=== PATIENT | female | born 1990 | race Caucasian/White ===

== ENCOUNTER 2018-01-17 10:10 | Inpatient (IN) | payer SELFPAY ==
[2018-01-17 10:27] VITALS: BMI 25.9
[2018-01-17 11:17] LABS: Hematocrit 41.8 % (37-47); Hemoglobin 14.9 g/dl (12.0-15.0); Mean Corp Hgb Conc 35.6 g/gl (32-36); Mean Corpuscular Hgb 31.2 pg (27.0-32.0); Mean Corpuscular Volume 87.6 fL (81-99); Mean Platelet Vol. 9.8 fl (6.2-12.0); Platelet Count 314 K/mm3 (150-450); RBC Distribution Width CV 12.9 % (11.6-14.6); Red Blood Count 4.77 M/mm3 (4.2-5.4); White Blood Count 9.6 K/mm3 (4.4-11.0)
[2018-01-17 11:23] LABS: Scan Indicated on CBC? Y/N NO
[2018-01-17 11:41] LABS: AST(SGOT) 29 U/L (15-37); Alanine Aminotransfer ALT/SGPT 29 U/L (13-56); Creatinine, Serum 0.62 mg/dL (0.55-1.02); EST Glomerular Filtration Rate 124 mL/min (>60); Est Glom Filt Rate - Afr Amer 150 mL/min (>60); Estimated Creatinine Clearance 132.54 ml/min; Uric Acid 4.2 mg/dL (2.6-6.0)
[2018-01-17 11:59] LABS: Prothrombin Time (Protime)PT. 13.1 SECONDS (11.7-14.9)
[2018-01-17 12:00] LABS: Partial Thromboplast Time 27.6 Seconds (24.1-36.2)
[2018-01-17 12:10] LABS: Protein, Urine (Random) 9.6 mg/dL (<11.9); Protein:Creat Ratio 169 mg/g CRE (0-200)
[2018-01-17] MEDS: 0.9% Saline Lock 10 ML Syringe IV (12:33)
[2018-01-17] MEDS: miSOPROStol 25 MCG TABLET VAGINAL ×3 (12:39→20:37)
--- NOTE | 2018-01-17 13:12 | PCM.HP.OB ---
- Problem List (1) Gestational HTN Status: Acute Qualifiers: Trimester: third trimester Qualified Code(s): O13.3 - Gestational [-induced] hypertension without significant proteinuria, third trimester History Date of Admission: 01/17/18 Final DEANNA: 02/07/18 Final DEANNA Source: US <20 weeks Gestational age: 37 Weeks and 0 Days History of this : No complications with this - course has been unremarkable until today. Patient presented to office without complaints but was found to have elevated blood pressures. Initial BP = 152/102. Following five blood pressures were 140-150s/90s. Patient denies SHETH, RUQ pain or scotoma. Pertinent Past Medical History: Noncontributory PMH Allergies cefaclor [From [facility]] Allergy (Verified 01/17/18 10:29) Other Current Medications Acetaminophen (Tylenol) 325 - 650 mg PO Q4H PRN PRN PRN Reason: PAIN OR FEVER >100.4F Al Hydroxide/Mg Hydroxide (Mylanta Ii) 15 - 30 ml PO Q4H PRN PRN PRN Reason: INDIGESTION Citric Acid/Sodium Citrate (Bicitra) 30 ml PO UD PRN Oxytocin/Sodium Chloride () 30 units in 500 mls @ 1 mls/hr IV .Q500H RAAD Lactated Ringer's () 1,000 mls @ 50 mls/hr IV .Q20H [facility] Misoprostol (Cytotec) 25 mcg VAGINAL Q4H [facility] Stop: 01/18/18 07:31 Last Admin: 01/17/18 12:39 Dose: 25 mcg Nalbuphine HCl (Nubain) 5 - 10 mg IV Q3H PRN PRN PRN Reason: PAIN (4-10/10) Ondansetron HCl (Zofran) 4 mg IV Q8H PRN PRN PRN Reason: NAUSEA Promethazine HCl (Phenergan Iv) 6.25 - 12.5 mg IV Q4H PRN PRN; Protocol PRN Reason: IF NAUSEA PERSISTS Sodium Chloride () 5 - 15 ml IV UD [facility] Last Admin: 01/17/18 12:33 Dose: 10 ml Smoking Status: Never smoker Alcohol: None Drug Use: none Number of Fetus(es): 1 Review of Systems Constitutional: Denies: Chills, Fever, Weight Change HEENT: Denies: Head Aches, Sinus Congestion, Sinus Drainage Cardiovascular: Denies: Chest Pain, Palpitations Respiratory: Denies: Cough, Shortness of breath at rest, Sputum production Gastrointestinal: Denies: Abdominal Pain, Nausea, Vomiting Genitourinary: Denies: Dysuria Gynecological: Denies: Vaginal discharge Musculoskeletal: Denies: Joint Pain, Joint Tenderness Skin: Denies: Rash, Wounds Neurological: Denies: Numbness, Tingling, Focal weakness Psychiatric: Denies: Anxiety, Depression, Homicidal Ideations, Suicidal Ideations Hematologic/ Lymphatic: Denies: Easy Bruising, Easy Bleeding Physical Exam General: Alert, Oriented x3, No apparent distress Cardiovascular: Regular rate, Regular Rhythm Lungs: Clear to auscultation, Normal air movement Abdomen: Non Tender, No Hepato-splenomegaly, Gravid, Appropriate for Gestational Age Extremities:: No edema Estimated gestational size: Appropriate for gestational size Presentation: Cephalic Cervix Dilation (cm): 1 Station: -2 Effacement (%): 50 Assessment/Plan Active and Suspected Problems Gestational HTN (Acute) A: 27 y/o @ 37 weeks, IOL for Gestational HTN, Category I FHT P: 1) Admit patient, IV heplock start and Pre-eclampsia blood work to be drawn 2) Continuous EFM 3) Full diet at this time - will consider changing to clear liquids if patient elects epidural 4) Cytotec IOL at this time, R/B/A of this medication reviewed. 5) Consents signed and all patient questions answered. 6) Reassess cervix PRN Namita MAY
--- NOTE | 2018-01-17 13:20 | HP.PCM_ITS ---
- Problem List (1) Gestational HTN Status: Acute Qualifiers: Trimester: third trimester Qualified Code(s): O13.3 - Gestational [ -induced] hypertension without significant proteinuria, third trimester History Date of Admission: 01/17/18 Final DEANNA: 02/07/18 Final DEANNA Source: US <20 weeks Gestational age: 37 Weeks and 0 Days History of this : No complications with this - course has been unremarkable until today. Patient presented to office without complaints but was found to have elevated blood pressures. Initial BP = 152/102. Following five blood pressures were 140-150s/90s. Patient denies SHETH, RUQ pain or scotoma. Pertinent Past Medical History: Noncontributory PMH Allergies cefaclor [From [facility]] Allergy (Verified 01/17/18 10:29) Other Current Medications Acetaminophen (Tylenol) 325 - 650 mg PO Q4H PRN PRN PRN Reason: PAIN OR FEVER >100.4F Al Hydroxide/Mg Hydroxide (Mylanta Ii) 15 - 30 ml PO Q4H PRN PRN PRN Reason: INDIGESTION Citric Acid/Sodium Citrate (Bicitra) 30 ml PO UD PRN Oxytocin/Sodium Chloride () 30 units in 500 mls @ 1 mls/hr IV .Q500H RAAD Lactated Ringer's () 1,000 mls @ 50 mls/hr IV .Q20H [facility] Misoprostol (Cytotec) 25 mcg VAGINAL Q4H [facility] Stop: 01/18/18 07:31 Last Admin: 01/17/18 12:39 Dose: 25 mcg Nalbuphine HCl (Nubain) 5 - 10 mg IV Q3H PRN PRN PRN Reason: PAIN (4-10/10) Ondansetron HCl (Zofran) 4 mg IV Q8H PRN PRN PRN Reason: NAUSEA Promethazine HCl (Phenergan Iv) 6.25 - 12.5 mg IV Q4H PRN PRN; Protocol PRN Reason: IF NAUSEA PERSISTS Sodium Chloride () 5 - 15 ml IV UD [facility] Last Admin: 01/17/18 12:33 Dose: 10 ml Smoking Status: Never smoker Alcohol: None Drug Use: none Number of Fetus(es): 1 Review of Systems Constitutional: Denies: Chills, Fever, Weight Change HEENT: Denies: Head Aches, Sinus Congestion, Sinus Drainage Cardiovascular: Denies: Chest Pain, Palpitations Respiratory: Denies: Cough, Shortness of breath at rest, Sputum production Gastrointestinal: Denies: Abdominal Pain, Nausea, Vomiting Genitourinary: Denies: Dysuria Gynecological: Denies: Vaginal discharge Musculoskeletal: Denies: Joint Pain, Joint Tenderness Skin: Denies: Rash, Wounds Neurological: Denies: Numbness, Tingling, Focal weakness Psychiatric: Denies: Anxiety, Depression, Homicidal Ideations, Suicidal Ideations Hematologic/ Lymphatic: Denies: Easy Bruising, Easy Bleeding Physical Exam General: Alert, Oriented x3, No apparent distress Cardiovascular: Regular rate, Regular Rhythm Lungs: Clear to auscultation, Normal air movement Abdomen: Non Tender, No Hepato-splenomegaly, Gravid, Appropriate for Gestational Age Extremities:: No edema Estimated gestational size: Appropriate for gestational size Presentation: Cephalic Cervix Dilation (cm): 1 Station: -2 Effacement (%): 50 Assessment/Plan Active and Suspected Problems Gestational HTN (Acute) A: 27 y/o @ 37 weeks, IOL for Gestational HTN, Category I FHT P: 1) Admit patient, IV heplock start and Pre-eclampsia blood work to be drawn 2) Continuous EFM 3) Full diet at this time - will consider changing to clear liquids if patient elects epidural 4) Cytotec IOL at this time, R/B/A of this medication reviewed. 5) Consents signed and all patient questions answered. 6) Reassess cervix PRN Namita MAY
--- NOTE | 2018-01-17 17:54 | PN.OBGYN_ITS ---
Patient Problems: Active and Suspected Problems Gestational HTN (Acute) Subjective: Patient reports no issues at this time; denies SHETH, denies dizziness, denies scotoma. Patient has and other family in room at this time providing support. Patient notes no VB or vaginal discharge. Objective: FHT baseline 150, moderate variability, +accels, no decels Ctx irregular on tocometer, non palpable and none felt by patient SVE deferred, cytotec dose #2 provided to patient by set staff fitter. Per nursing staff , cervix unchanged with last exam. - Physical Exam General: Alert, Oriented x3, Cooperative HEENT: Atraumatic, Normocephalic Neck: Supple Lungs: Clear to auscultation, Normal air movement Cardiovascular: Regular rate, No murmurs Abdomen: Bowel Sounds Present, Soft, Non Tender Extremities: No edema, Capillary Refill Less than 3 Seconds Skin: No rashes, No breakdown Musculoskeletal: No Tenderness to Palpation of Joints or Extremities Neurological: Cranial nerves II-XII grossly intact Psych/Mental Status: Normal Affect, Appropriate Weight: 166 lb 0.129 oz Body Mass Index (BMI) 25.9 Laboratory Tests Past 24 Hrs 01/17/18 01/17/18 01/17/18 11:00 11:00 11:00 WBC 9.6 RBC 4.77 Hgb 14.9 Hct 41.8 MCV 87.6 MCH 31.2 MCHC 35.6 RDW 12.9 RDW Differential 40.0 Plt Count 314 MPV 9.8 PT Cancelled INR Cancelled APTT Cancelled Creatinine Estim Creat Clear Calc Est GFR (MDRD) Af Amer Est GFR (MDRD) Non-Af Uric Acid AST ALT U Random Total Protein Urine Creatinine Protein/Creatinin Ratio Blood Type B POSITIVE Antibody Screen NEGATIVE 01/17/18 01/17/18 01/17/18 11:00 11:35 11:55 WBC RBC Hgb Hct MCV MCH MCHC RDW RDW Differential Plt Count MPV PT 13.1 INR 1.0 APTT 27.6 Creatinine 0.62 Estim Creat Clear Calc 132.54 Est GFR (MDRD) Af Amer 150 Est GFR (MDRD) Non-Af 124 Uric Acid 4.2 AST 29 ALT 29 U Random Total Protein 9.6 Urine Creatinine 56.80 Protein/Creatinin Ratio 169 Blood Type Antibody Screen Medical Necessity - Tobacco Use Smoking Status: Never smoker Tobacco Use: Non-smoker Assessment/Plan Active and Suspected Problems Gestational HTN (Acute) A: 27 y/o @ 37 weeks gestation, IOL for gestational hypertension, Category I FHT P: 1) Continue present management, cytotec 25mcg q 4 hours PV. Consider watters catheter placement over night if minimal cervical change noted 2) Encourage PO fluids and position changes 3) Continue to monitor BP closely, if elevate BP noted will consult with Dr. Puri in anticipation of starting IV antihypertensives and possibly magnesium sulfate Namita Johnson CNM
--- NOTE | 2018-01-17 21:10 | PN.OBGYN_ITS ---
Patient Problems: Active and Suspected Problems Gestational HTN (Acute) Subjective: Patient laying in bed, denies any complaints or concerns at this time. Patient' s family remains at bedside providing support. Objective: VSS, Afebrile - see nurse's notes for Vital Signs FHT baseline 150, moderate variability, +accels, no decels Ctx irregular, not palpable, few noted on tocometer 2/60/-2 posterior moderate firmness - Physical Exam General: Alert, Oriented x3, Cooperative HEENT: Atraumatic, PERRLA, EOMI, Normocephalic Neck: Supple Lungs: Normal air movement Cardiovascular: Regular rate, No murmurs Abdomen: Soft, Non Tender Extremities: No edema, Capillary Refill Less than 3 Seconds, Peripheral Pulses Normal Skin: No rashes, No breakdown Musculoskeletal: No Tenderness to Palpation of Joints or Extremities Neurological: Cranial nerves II-XII grossly intact, Deep Tendon Reflexes 2+/4 and Symmetrical Psych/Mental Status: Normal Affect, Appropriate Weight: 166 lb 0.129 oz Body Mass Index (BMI) 25.9 Laboratory Tests Past 24 Hrs 01/17/18 01/17/18 01/17/18 11:00 11:00 11:00 WBC 9.6 RBC 4.77 Hgb 14.9 Hct 41.8 MCV 87.6 MCH 31.2 MCHC 35.6 RDW 12.9 RDW Differential 40.0 Plt Count 314 MPV 9.8 PT Cancelled INR Cancelled APTT Cancelled Creatinine Estim Creat Clear Calc Est GFR (MDRD) Af Amer Est GFR (MDRD) Non-Af Uric Acid AST ALT U Random Total Protein Urine Creatinine Protein/Creatinin Ratio Blood Type B POSITIVE Antibody Screen NEGATIVE 01/17/18 01/17/18 01/17/18 11:00 11:35 11:55 WBC RBC Hgb Hct MCV MCH MCHC RDW RDW Differential Plt Count MPV PT 13.1 INR 1.0 APTT 27.6 Creatinine 0.62 Estim Creat Clear Calc 132.54 Est GFR (MDRD) Af Amer 150 Est GFR (MDRD) Non-Af 124 Uric Acid 4.2 AST 29 ALT 29 U Random Total Protein 9.6 Urine Creatinine 56.80 Protein/Creatinin Ratio 169 Blood Type Antibody Screen Medical Necessity - Tobacco Use Smoking Status: Never smoker Tobacco Use: Non-smoker Assessment/Plan Active and Suspected Problems Gestational HTN (Acute) 27 y/o @ 37 weeks, IOL for Gestational HTN, Category I FHT P: 1) Continue present management - cytotec dose # 3 just placed 2) Anticipate initiation of pitocin IV per protocol when cervix >3 cm dilated 3) Dr. Puri updated about patient status Namita Johnson CNM
[2018-01-18] MEDS: miSOPROStol 25 MCG TABLET VAGINAL ×2 (00:25→04:21)
[2018-01-18] MEDS: Acetaminophen 325 MG Tablet PO ×2 (00:31→04:21)
[2018-01-18] MEDS: 0.9% Saline Lock 10 ML Syringe IV ×2 (04:28→08:12)
--- NOTE | 2018-01-18 04:54 | PCM.PN.BLA ---
Progress Note S: Patient has been up ambulating halls over last hour prior to insertion of next dose of cytotec. Patient reports increasing pain and discomfort, denies any VB or LOF. Patient has easily been able to sleep and is rating her pain 8/10. Reassuring FHT noted by nursing staff. O: VSS, Afebrile. Blood pressures have ranged 120-130/70-80s FHT baseline 135, moderate variability, + accels, no decels Ctx irregular, mildly palpable SVE by SHARON Deleon - 2/75/-2 soft, anterior A: 27 y/o @ 37.1 weeks, IOL for GHTN, Cytotec Induction, Category I FHT P: 1) 5th dose of Cytotec placed by nursing staff at 0430, based on cervical exam will recommend switching to IV Pitocin per protocol at 0830 2) Encourage position changes and PO hydration 3) Pain medication options to be offered per patient request, anticipate patient will elect for epidural PRN Namita Johnson CNM
--- NOTE | 2018-01-18 05:02 | PN_ITS ---
Progress Note S: Patient has been up ambulating halls over last hour prior to insertion of next dose of cytotec. Patient reports increasing pain and discomfort, denies any VB or LOF. Patient has easily been able to sleep and is rating her pain 8/ 10. Reassuring FHT noted by nursing staff. O: VSS, Afebrile. Blood pressures have ranged 120-130/70-80s FHT baseline 135, moderate variability, + accels, no decels Ctx irregular, mildly palpable SVE by SHARON Deleon - 2/75/-2 soft, anterior A: 27 y/o @ 37.1 weeks, IOL for GHTN, Cytotec Induction, Category I FHT P: 1) 5th dose of Cytotec placed by nursing staff at 0430, based on cervical exam will recommend switching to IV Pitocin per protocol at 0830 2) Encourage position changes and PO hydration 3) Pain medication options to be offered per patient request, anticipate patient will elect for epidural PRN Namita Johnson CNM
[2018-01-18] MEDS: Lactated Ringers 1,000 ML 50 ML IV ×5 (08:14→22:25)
[2018-01-18] MEDS: Oxytocin 30 units/NS 500 ml 30 UNITS/500 ML IV.SOLN IV (09:24)
--- NOTE | 2018-01-18 13:38 | PCM.PN.BLA ---
Progress Note S: Patient comfortable with ctxs O: cvx 3/-2 AROM clear fluid fhts 140 with mod variability, accels tocos Q2 min A&P: continue induction for gestational hypertension
[2018-01-18] MEDS: fentaNYL-bupivacaine (epidural) 100 ML BAG EPIDURAL ×2 (14:45→21:57)
[2018-01-18] MEDS: Ondansetron 4 MG/2 ML Vial IV (18:34)
[2018-01-18] MEDS: Oxytocin 30 units/NS 500 ml 30 UNITS/500 ML IV.SOLN 334 UNITS IV (23:21)
[2018-01-18] MEDS: Oxytocin 30 units/NS 500 ml 30 UNITS/500 ML IV.SOLN 167 UNITS IV (23:51)
[2018-01-19] VITALS (7 sets, daily range): BP systolic 133–152; BP diastolic 72–89; PULSE 69–93; RESP 16–20; TEMP 36.6–37.3; O2SAT 98–100
--- NOTE | 2018-01-19 00:06 | PCM.OB.VAG ---
Vaginal Delivery Maternal Presentation: Medically Indicated Induction Method of Induction: Pitocin, Amniotomy, Cytotec Medical Reason for Induction: Gestational Hypertension Amniotic Membrane Rupture Type: Artificial Amniotic Fluid Description: Clear Final DEANNA: 02/07/18 Gestational age: 37 Weeks and 1 Days Date of Procedure: 01/19/18 Pre-Operative Diagnosis: Gestational hypertension Post-Operative Diagnosis: Same Surgery/ Procedure Performed: Spontaneous Vaginal Delivery Type of Anesthesia: Epidural Description of Procedure: [facility] & [facility]ed. She pushed well & delivered the head. The shoulders delivered with gentle traction on the head. No excess traction placed on the head. Body delivered & placed on maternal abdomen. 3vc clamped & cut in delayed fashion. Placenta delivered with gentle traction. Good uterine tone obtained. Presentation: Vertex, QUINTIN Placental Delivery Description: Spontaneous Placenta Disposition: [facility] Cord Vessel Description: 3 Vessels Cord Entanglement: None Estimated Blood Loss: 350ml Infant A gender: Female (1 minute): 8 (5 minute): 9 Episiotomy Description: None Laceration: 2nd degree - bilateral vaginal & 1st degree left labia minora - repaired with 3-0 vicryl Medications given after delivery: IV Pitocin Complications: None
--- NOTE | 2018-01-19 00:16 | OP.PCM_ITS ---
Vaginal Delivery Maternal Presentation: Medically Indicated Induction Method of Induction: Pitocin, Amniotomy, Cytotec Medical Reason for Induction: Gestational Hypertension Amniotic Membrane Rupture Type: Artificial Amniotic Fluid Description: Clear Final DEANNA: 02/07/18 Gestational age: 37 Weeks and 1 Days Date of Procedure: 01/19/18 Pre-Operative Diagnosis: Gestational hypertension Post-Operative Diagnosis: Same Surgery/ Procedure Performed: Spontaneous Vaginal Delivery Type of Anesthesia: Epidural Description of Procedure: [facility] & [facility]ed. She pushed well & delivered the head. The shoulders delivered with gentle traction on the head. No excess traction placed on the head. Body delivered & placed on maternal abdomen. 3vc clamped & cut in delayed fashion. Placenta delivered with gentle traction. Good uterine tone obtained. Presentation: Vertex, QUINTIN Placental Delivery Description: Spontaneous Placenta Disposition: [facility] Cord Vessel Description: 3 Vessels Cord Entanglement: None Estimated Blood Loss: 350ml Infant A gender: Female (1 minute): 8 (5 minute): 9 Episiotomy Description: None Laceration: 2nd degree - bilateral vaginal & 1st degree left labia minora - repaired with 3-0 vicryl Medications given after delivery: IV Pitocin Complications: None
--- NOTE | 2018-01-19 00:45 | PCM.PN.BLA ---
Progress Note S: Called by nurse to see patient for drooping right eyelid Patient denies headache or blurry vision O: BP = 144/78 neuro - moving arms equally & finger grasp strong pupils - right slightly smaller than left but both equally reactive to light slight right eyelid droop to puffy no facial droop. moving tongue & head well A&P: Patient also evaluated by anesthesia (MELCHOR Robbins) - per her no evidence complication from epidural No neurological deficits Will continue to observe, no evidence acute pathology
[2018-01-19] MEDS: Ibuprofen 600 MG Tablet PO ×3 (03:11→22:33)
[2018-01-19] MEDS: oxyCODONE 5 MG Tablet PO ×3 (04:45→21:02)
[2018-01-19] MEDS: Dibucaine 30 GM Tube 1 APPLIC TOPICAL (06:58)
--- NOTE | 2018-01-19 07:47 | PCM.PN.OB ---
Patient Problems: Active and Suspected Problems Gestational HTN (Acute) Subjective: Feels well. Denies complaints. Eyelid no longer drooping. - Physical Exam General: Alert, Oriented x3 Abdomen: Soft, Non Tender, Non-Distended - ff mid & below umb Extremities: No Calf Tenderness Neurological: Cranial nerves II-XII grossly intact - PERRL Vital Signs Temp Pulse Resp BP Pulse Ox 98.7 F 93 18 134/72 H 100 01/19/18 06:00 01/19/18 06:00 01/19/18 06:00 01/19/18 06:00 01/19/18 06:00 Weight: 166 lb 0.129 oz Body Mass Index (BMI) 25.9 Intake and Output for Last 24 Hours 01/17/18 01/18/18 01/19/18 23:59 23:59 23:59 Intake Total 193 / 1931 2543 / 2543 Output Total 1800 / 1800 Balance 1931 / 1931 743 / 743 Medical Necessity - Tobacco Use Smoking Status: Never smoker Tobacco Use: Non-smoker Assessment/Plan Active and Suspected Problems Gestational HTN (Acute) 27yo female PPD#1 Gestational hypertension - BP normal this am, continue to monitor Neuro - pupils equal & reactive, no deficits Routine care
--- NOTE | 2018-01-19 07:51 | PCM.DCVAG ---
Discharge Diet: No Restrictions Discharge Activity: [address], May Shower Additional Activity Instructions:: Follow up in 1 week for a blood pressure check. Additional Instructions: If you experience any of the following, contact your healthcare provider. Bleeding that soaks a pad every hour for 2 hours Fever 100.4 or higher Unrelieved incision or abdominal pain Swelling, redness, discharge or bleeding from your incision or episiotomy site Your incision begins to separate Problems urinating (including inability to urinate or burning while urinating). Visual changes Severe headache Flu-like symptoms Pain or redness in one of both of your breasts Pain, warmth, tenderness or swelling in your legs, especially the calf area Frequent nausea and vomiting Symptoms of depression or anxiety If you experience any of the following, call 911 or go to the nearest Emergency Room. Chest pain Problems breathing Seizure activity Partial or complete paralysis of a body part, slurred speech, weakness or drooping of the face, or a sudden inability to walk or hold your balance Allergies/Adverse Reactions: Allergies cefaclor [From Ceclor] Allergy (Verified 01/17/18 19:39) Other hives Medications to take at Discharge Vits [Prenatabs FA ] 1 tab PO DAILY 01/17/18 Primary Care Physician: Care Physician,No Primary [Primary Care Provider] -
--- NOTE | 2018-01-19 07:52 | DCINST_ITS ---
Discharge Diet: No Restrictions Discharge Activity: May Drive, May Shower Additional Activity Instructions:: Follow up in 1 week for a blood pressure check. Additional Instructions: If you experience any of the following, contact your healthcare provider. * Bleeding that soaks a pad every hour for 2 hours * Fever 100.4 or higher * Unrelieved incision or abdominal pain * Swelling, redness, discharge or bleeding from your incision or episiotomy site * Your incision begins to separate * Problems urinating (including inability to urinate or burning while urinating) . * Visual changes * Severe headache * Flu-like symptoms * Pain or redness in one of both of your breasts * Pain, warmth, tenderness or swelling in your legs, especially the calf area * Frequent nausea and vomiting * Symptoms of depression or anxiety If you experience any of the following, call 911 or go to the nearest Emergency Room. * Chest pain * Problems breathing * Seizure activity * Partial or complete paralysis of a body part, slurred speech, weakness or drooping of the face, or a sudden inability to walk or hold your balance Allergies/Adverse Reactions: Allergies cefaclor [From Ceclor] Allergy (Verified 01/17/18 19:39) Other hives Medications to take at Discharge Vits [Prenatabs FA ] 1 tab PO DAILY 01/17/18 Primary Care Physician: Care Physician,No Primary [Primary Care Provider] -
[2018-01-19] MEDS: Senna/Docusate Sodium 1 Tablet PO (12:01)
[2018-01-20 02:35] VITALS: BP 140/80; PULSE 72; RESP 18; TEMP 36.5; O2SAT 96
--- NOTE | 2018-01-20 07:53 | PCM.PN.OB ---
Patient Problems: Active and Suspected Problems Gestational HTN (Acute) Subjective: pt seen at bedside, doing well. pt reports good pain control. lochia mild. Breast feeding well. pt denies SHETH, blurry vision or epigastric pain. - Physical Exam General: Alert, Oriented x3 Abdomen: Soft, Non Tender, Non-Distended, - - fundus firm Extremities: No Calf Tenderness Vital Signs Temp Pulse Resp BP Pulse Ox 97.7 F L 72 18 140/80 H 96 01/20/18 02:35 01/20/18 02:35 01/20/18 02:35 01/20/18 02:35 01/20/18 02:35 Oxygen Delivery Method Room Air Weight: 75.3 kg Body Mass Index (BMI) 25.9 Intake and Output for Last 24 Hours 01/18/18 01/19/18 01/20/18 23:59 23:59 23:59 Intake Total 1931 / 1931 2543 / 2543 Output Total 1800 / 1800 Balance 1931 / 1931 743 / 743 Medical Necessity - Tobacco Use Smoking Status: Never smoker Tobacco Use: Non-smoker Assessment/Plan Active and Suspected Problems Gestational HTN (Acute) PPD#2, doing well. BP stable. 1) reviewed s/sx of PP Pre E with patient and spouse. they understand if symptoms arise to return to office or ER immediately 2) RTO monday01/23/18 at 9am for BP check 3) Dc home
[2018-01-20 08:00] VITALS: BP 134/82; RESP 16; O2SAT 98
[2018-01-20] MEDS: Ibuprofen 600 MG Tablet PO (08:13)
== END 2018-01-20 11:40 | disposition home or self-care (01) | DRG 775 ==
PROVIDERS: Advanced Practice Midwife; Admitting Provider Obstetrics & Gynecology; Visit Provider Obstetrics & Gynecology
DX: O13.3 Gestational [pregnancy-induced] hypertension without significant proteinuria, third trimester (principal); H02.401 Unspecified ptosis of right eyelid; O70.1 Second degree perineal laceration during delivery; O99.89 Other specified diseases and conditions complicating pregnancy, childbirth and the puerperium; Z37.0 Single live birth; Z3A.37 37 weeks gestation of pregnancy
CPT/HCPCS: 59025; 59050; 82565; 82570; 84156; 84450; 84460; 84550; 85027; 85610; 85730; 86850; 86900; 99218; J7120; A4216; G0378; J2405

== ENCOUNTER 2018-01-23 09:20 | Outpatient (CLI) | payer SELFPAY ==
[2018-01-23] VITALS (15 sets, daily range): BP systolic 128–147; BP diastolic 64–89; PULSE 90–97; RESP 14; TEMP 37; O2SAT 100
[2018-01-23 10:27] LABS: Prothrombin Time (Protime)PT. 12.9 SECONDS (11.7-14.9)
[2018-01-23 10:28] LABS: Hematocrit 41.4 % (37-47); Hemoglobin 14.7 g/dl (12.0-15.0); Mean Corp Hgb Conc 35.5 g/gl (32-36); Mean Corpuscular Hgb 31.3 pg (27.0-32.0); Mean Corpuscular Volume 88.3 fL (81-99); Mean Platelet Vol. 9.2 fl (6.2-12.0); Partial Thromboplast Time 29.3 Seconds (24.1-36.2); Platelet Count 387 K/mm3 (150-450); RBC Distribution Width CV 12.6 % (11.6-14.6); RBC Distribution Width SD 39.8 fl (35.1-43.9); Red Blood Count 4.69 M/mm3 (4.2-5.4); Scan Indicated on CBC? Y/N NO; White Blood Count 8.7 K/mm3 (4.4-11.0)
[2018-01-23 10:31] LABS: Protein, Urine (Random) 13.5 mg/dL (<11.9); Protein:Creat Ratio 234 mg/g CRE (0-200)
[2018-01-23 10:48] LABS: AST(SGOT) 47 U/L (15-37); Alanine Aminotransfer ALT/SGPT 54 U/L (13-56); Creatinine, Serum 0.68 mg/dL (0.55-1.02); EST Glomerular Filtration Rate 111 mL/min (>60); Est Glom Filt Rate - Afr Amer 134 mL/min (>60); Uric Acid 5.1 mg/dL (2.6-6.0)
--- NOTE | 2018-01-23 13:42 | OB.TRI.NOTE ---
History of Present Illness Date of Service: 01/23/18 Was patient seen by the physician?: Yes Reason For Visit: YOLYBRIAN Date of Service: 01/23/18 History of Present Illness: Patient 5 days s/p . She had her BP checked on L&D while baby was re-admitted for bilirubin. Patient reports very mild headache. Denies blurry vision or upper abdominal pain. Home Medications Medication Instructions Recorded Vits [Prenatabs FA ] 1 tab PO DAILY 01/17/18 Allergies cefaclor [From Ceclor] Allergy (Verified 01/17/18 19:39) Other hives Physical Exam Vitals: Vital Signs Temp Pulse Resp BP Pulse Ox 98.6 F 94 14 139/85 H 100 01/23/18 10:15 01/23/18 10:15 01/23/18 10:15 01/23/18 10:15 01/23/18 10:15 General: Alert, Oriented x3 Abdomen: Soft, Non Tender, Non-Distended, No Hepato-splenomegaly Extremities:: No edema Impression/Plan 27yo female with h/o gestational hypertension BP's reviewed & 128-147/64-89 Labs normal except mildly elevated AST Reflexes 2+ Patient to eat lunch & get 1 g tyleneol. IF feeling better will plan for d/c home. Patient has BP cuff to monitor BP at home. She will call with any BP 160/110. ALso reviewed preeclampsia symptoms. She will update office tomorrow. Plan for office visit with repeat LFT's in 2-3 days. Patient & her family agree with plan.
--- NOTE | 2018-01-23 13:50 | OB.TRI.HP_ITS ---
History of Present Illness Date of Service: 01/23/18 Was patient seen by the physician?: Yes Reason For Visit: YOLYBRIAN Date of Service: 01/23/18 History of Present Illness: Patient 5 days s/p . She had her BP checked on L&D while baby was re- admitted for bilirubin. Patient reports very mild headache. Denies blurry vision or upper abdominal pain. Home Medications Medication Instructions Recorded Vits [Prenatabs FA ] 1 tab PO DAILY 01/17/18 Allergies cefaclor [From Ceclor] Allergy (Verified 01/17/18 19:39) Other hives Physical Exam Vitals: Vital Signs Temp Pulse Resp BP Pulse Ox 98.6 F 94 14 139/85 H 100 01/23/18 10:15 01/23/18 10:15 01/23/18 10:15 01/23/18 10:15 01/23/18 10:15 General: Alert, Oriented x3 Abdomen: Soft, Non Tender, Non-Distended, No Hepato-splenomegaly Extremities:: No edema Impression/Plan 27yo female with h/o gestational hypertension BP's reviewed & 128-147/64-89 Labs normal except mildly elevated AST Reflexes 2+ Patient to eat lunch & get 1 g tyleneol. IF feeling better will plan for d/c home. Patient has BP cuff to monitor BP at home. She will call with any BP 160 /110. ALso reviewed preeclampsia symptoms. She will update office tomorrow. Plan for office visit with repeat LFT's in 2-3 days. Patient & her family agree with plan.
== END 2018-01-23 15:15 | disposition home or self-care (01) ==
LOC: WPOUT 09:24 → WP 09:25
PROVIDERS: Visit Provider Obstetrics & Gynecology
DX: O13.5 Gestational [pregnancy-induced] hypertension without significant proteinuria, complicating the puerperium (principal)
CPT/HCPCS: 36415; 82565; 82570; 84156; 84450; 84460; 84550; 85027; 85610; 85730; 99218; G0378

== ENCOUNTER → 2018-01-25 11:54 | Outpatient (CLI) | payer SELFPAY ==
[2018-01-25 12:10] LABS: Hematocrit 43.2 % (37-47); Hemoglobin 14.9 g/dl (12.0-15.0); Mean Corp Hgb Conc 34.5 g/gl (32-36); Mean Corpuscular Hgb 30.5 pg (27.0-32.0); Mean Corpuscular Volume 88.5 fL (81-99); Mean Platelet Vol. 8.9 fl (6.2-12.0); Platelet Count 360 K/mm3 (150-450); RBC Distribution Width CV 12.6 % (11.6-14.6); RBC Distribution Width SD 40.6 fl (35.1-43.9); Red Blood Count 4.88 M/mm3 (4.2-5.4); White Blood Count 9.4 K/mm3 (4.4-11.0)
[2018-01-25 12:16] LABS: Scan Indicated on CBC? Y/N NO
[2018-01-25 12:33] LABS: AST(SGOT) 30 U/L (15-37); Alanine Aminotransfer ALT/SGPT 46 U/L (13-56); Uric Acid 5.5 mg/dL (2.6-6.0)
== END ==
PROVIDERS: Visit Provider Advanced Practice Midwife
DX: O13.5 Gestational [pregnancy-induced] hypertension without significant proteinuria, complicating the puerperium (principal)
CPT/HCPCS: 36415; 84450; 84460; 84550; 85027

== ENCOUNTER 2020-05-29 07:04 | Inpatient (IN) | payer BC, SELFPAY ==
[2020-05-29] VITALS (55 sets, daily range): BP systolic 63–162; BP diastolic 37–101; PULSE 53–131; RESP 14–18; TEMP 36.4–37.4; O2SAT 98–100; BMI 27.3
[2020-05-29] MEDS: Lactated Ringers 1,000 ML 50 ML IV (07:30)
[2020-05-29 07:54] LABS: Absolute Lymphocyte Count 2.81 X10^3/uL (0.83-4.51); Absolute Neutrophil Count 10.4 X10^3/uL (2.0-7.7); Basophil# 0.03 X10^3/uL; Basophil% 0.2 % (0-1); Eosinophil# 0.09 X10^3/uL; Eosinophils% 0.6 % (0-5); Hematocrit 39.7 % (37-47); Hemoglobin 14.1 g/dL (12.0-15.0); Lymphocyte # 2.81 X10^3/ul (4.0); Lymphocyte % 19.5 % (19-41); Mean Corp Hgb Conc 35.5 g/dL (32-36); Mean Corpuscular Hgb 31.9 pg (27.0-32.0); Mean Corpuscular Volume 89.8 fL (81-99); Mean Platelet Vol. 9.7 fl (6.2-12.0); Monocyte# 0.98 X10^3/uL; Monocyte% 6.8 % (0-10); NRBC Flagged by Analyzer 0 % (0-5); Neutrophil # 10.42 X10^3/uL (2.7-7.7); Neutrophil % 72.5 % (47-70); Platelet Count 275 K/mm3 (150-450); RBC Distribution Width CV 12.1 % (11.6-14.6); RBC Distribution Width SD 39.7 fl (35.1-43.9); Red Blood Count 4.42 M/mm3 (4.2-5.4); White Blood Count 14.4 K/mm3 (4.4-11.0)
[2020-05-29] MEDS: Oxytocin 30 units/NS 500 ml 30 UNITS/500 ML IV.SOLN IV (08:48)
--- NOTE | 2020-05-29 08:49 | HP.PCM_ITS ---
History Date of Admission: 05/29/20 Final DEANNA: 05/24/20 Final DEANNA Source: US <20 weeks Gestational age: 40 Weeks and 5 Days History of this : This is a 29 year-old, G [], P [], at 40 weeks gestational age. Allergies cefaclor [From Ceclor] Allergy (Verified 05/29/20 07:33) Other hives Home Medications: Home Medications Vits [Prenatabs FA ] 1 tab PO DAILY 01/17/18 Smoking Status: Never smoker Alcohol: None Number of Fetus(es): 1 NST - FHR Rate Baby A Baseline: 150 Variability:: Moderate Accelerations:: 15 x 15 Decelerations:: Variable Uterine Activity:: Irregular History Past Pregnancies: Past Pregnancies Delivery Date Name GA/ Weeks Outcome Route Wt Infant Sex Labor Length Anesthesia Delivery Location Provider FOB Labs: See [facility] prenatals Physical Exam Vitals: Vital Signs Temp Pulse BP Pulse Ox 99.0 F 102 H 133/96 H 98 05/29/20 07:54 05/29/20 07:54 05/29/20 07:54 05/29/20 08:05 General: Alert, Oriented x3 Abdomen: Soft, Non Tender, Non-Distended, Gravid Neurological: Cranial nerves II-XII grossly intact TWISTING FRAME CHANGER: Normal external genitalia Estimated gestational size: Appropriate for gestational size Presentation: Cephalic Cervix Dilation (cm): 4.5 Station: -2 Effacement (%): 80 Assessment/Plan All Active Problems Gestational HTN (Acute) This is a 29 year-old, at 40&5 weeks gestational age. Admit to L&D Post dates induction - on pitocin GBS positive - pcn per protocol Pain - epidural as desired EFW less than 4500g, patient with adequate pelvis Routin care
[2020-05-29] MEDS: Lactated Ringers 500 ML 999 ML IV ×2 (10:00→11:34)
[2020-05-29] MEDS: fentaNYL-bupivacaine (epidural) 100 ML BAG EPIDURAL (10:52)
--- NOTE | 2020-05-29 11:29 | PCM.PN.BLA ---
Progress Note S: Patient comfortable with epidural O: cvx - /-1 AROM clear fluid fhts - patient with some prolonged decelerations s/p epidural and AROM. Fht's now reassuring with repositioning, fluid bolus, stopping pitocin and ephedrine. A&P: Continue expectant management & hold pitocin for now STROKE Vital Signs/Narrative: Vital Signs Temp Pulse BP Pulse Ox 05/29/20 11:18 105 H 118/58 L 05/29/20 11:15 98 100 05/29/20 11:13 93 114/59 L 05/29/20 11:10 97 100 05/29/20 11:08 92 115/57 L 05/29/20 11:05 105 H 100 05/29/20 11:02 101 H 116/70 05/29/20 11:00 116 H 100 05/29/20 10:57 121 H 113/76 05/29/20 10:55 120 H 100 05/29/20 10:53 115 H 129/82 H 05/29/20 10:50 99 100 05/29/20 10:48 103 H 160/91 H 05/29/20 10:45 99 100 05/29/20 10:44 111 H 154/98 H 05/29/20 10:40 104 H 100 05/29/20 10:38 93 162/94 H 05/29/20 10:35 97 100 05/29/20 10:33 92 153/93 H 05/29/20 10:02 101 H 141/88 H 100 05/29/20 09:09 96 135/92 H 99 05/29/20 08:05 98 05/29/20 07:54 99.0 F 102 H 133/96 H 05/29/20 07:51 101 H 140/98 H
[2020-05-29] MEDS: Lactated Ringers 1,000 ML 200 ML IV (12:05)
[2020-05-29] MEDS: Oxytocin 30 units/NS 500 ml 30 UNITS/500 ML IV.SOLN 334 UNITS IV (13:45)
--- NOTE | 2020-05-29 14:15 | PCM.OPRPT ---
Vaginal Delivery Maternal Presentation: Medically Indicated Induction - post-dates Method of Induction: Pitocin, Amniotomy Amniotic Membrane Rupture Type: Artificial Amniotic Fluid Description: Clear Final DEANNA: 05/24/20 Gestational age: 40 Weeks and 5 Days Date of Procedure: 05/29/20 Pre-Operative Diagnosis: Post-dates Post-Operative Diagnosis: Same Surgery/ Procedure Performed: Spontaneous Vaginal Delivery Type of Anesthesia: Epidural Description of Procedure: Called to room when patient C/C/+2. Patient prepped & draped in stirrups. She pushed to deliver head. head gently guided to allow delivery of anterior and posterior shoulders. No excess traction placed on head. Body delivered and infant placed on maternal abdomen. 3VC clamped & cut in delayed fashion. Placenta delivered with gentle traction. Good uterine tone obtained. Presentation: LUIS ARMANDO Placental Delivery Description: Expressed Placenta Disposition: [facility] Cord Vessel Description: 3 Vessels Cord Entanglement: None Estimated Blood Loss: 400ml A gender: Female - Haven (1 minute): 8 (5 minute): 9 Episiotomy Description: None Laceration: 2nd degree - perineal & 1st degree left vaginal - repaired with 3-0 vicryl Medications given after delivery: IV Pitocin Complications: None
[2020-05-29] MEDS: Ibuprofen 600 MG Tablet PO ×2 (14:49→21:37)
[2020-05-29] MEDS: Acetaminophen 500 MG Tablet 1000 MG PO (17:17)
[2020-05-30] MEDS: Acetaminophen 500 MG Tablet 1000 MG PO ×2 (02:35→11:37)
[2020-05-30 04:50] VITALS: BP 107/60; PULSE 75; RESP 16; TEMP 36.2
[2020-05-30] MEDS: Ibuprofen 600 MG Tablet PO ×2 (06:11→16:14)
[2020-05-30 07:56] VITALS: BP 129/69; PULSE 76; RESP 16; TEMP 36.6; O2SAT 97
--- NOTE | 2020-05-30 11:49 | PCM.PN.OB ---
Subjective: No complaints - Physical Exam Vitals/I&O's: Vital Signs Temp Pulse Resp BP Pulse Ox 97.8 F 76 16 129/69 H 97 05/30/20 07:56 05/30/20 07:56 05/30/20 07:56 05/30/20 07:56 05/30/20 07:56 Oxygen Delivery Method Room Air Weight: 174 lb 6.17 oz Body Mass Index (BMI) 27.3 Intake and Output for Last 24 Hours 05/28/20 05/29/20 05/30/20 23:59 23:59 23:59 Intake Total 2501.50 / 2501.50 Output Total 1950 / 1950 Balance 551.50 / 551.50 General: Alert, Oriented x3 Abdomen: Soft, Non Tender, Non-Distended - ff mid & below umb Extremities: No Calf Tenderness Current Medications Acetaminophen (Tylenol) 1,000 mg PO Q8H PRN PRN PRN Reason: Pain Score 1-3/10 Last Admin: 05/30/20 11:37 Dose: 1,000 mg Documented by: Bisacodyl (Dulcolax) 10 mg RECTAL UD PRN PRN Reason: If no BM Dibucaine (Dibucaine) 1 applic TOPICAL TID PRN PRN; Protocol PRN Reason: Discomfort Hydrocortisone (Hytone) 1 applic TOPICAL TID PRN PRN; Protocol PRN Reason: Discomfort Ibuprofen (Motrin) 600 mg PO Q6H PRN PRN PRN Reason: Pain Score 1-3/10 Last Admin: 05/30/20 06:11 Dose: 600 mg Documented by: Methylergonovine Maleate (Methergine) 0.2 mg IM X1 PRN PRN Reason: Excess bleeding/uterine atony Ondansetron HCl (Zofran) 4 mg IV Q4H PRN PRN PRN Reason: Nausea Oxycodone HCl (Oxyir) 5 - 10 mg PO Q4H PRN PRN PRN Reason: Pain Score 4-10/10 Senna/Docusate Sodium (Senokot-S, Sara-Colace) 1 - 2 tablet PO DAILY PRN PRN PRN Reason: Constipation Simethicone (Mylicon) 80 mg PO PCHS PRN PRN Reason: Indigestion/Stomach pain Sodium Chloride () 5 - 15 ml IV UD PRN PRN Reason: SALINE FLUSH Medical Necessity - Tobacco Use Smoking Status: Never smoker Assessment/Plan All Active Problems Gestational HTN (Acute) PPD#1 Routine care Plan for discharge to home later today
--- NOTE | 2020-05-30 11:51 | DCINST_ITS ---
Discharge Diet: No Restrictions Discharge Activity: May Drive, May Shower May resume sexual activity in: 6 weeks Additional Instructions: If you experience any of the following, contact your healthcare provider. * Bleeding that soaks a pad every hour for 2 hours * Fever 100.4 or higher * Unrelieved incision or abdominal pain * Swelling, redness, discharge or bleeding from your incision or episiotomy site * Your incision begins to separate * Problems urinating (including inability to urinate or burning while urinating). * Visual changes * Severe headache * Flu-like symptoms * Pain or redness in one of both of your breasts * Pain, warmth, tenderness or swelling in your legs, especially the calf area * Frequent nausea and vomiting * Symptoms of depression or anxiety If you experience any of the following, call 911 or go to the nearest Emergency Room. * Chest pain * Problems breathing * Seizure activity * Partial or complete paralysis of a body part, slurred speech, weakness or drooping of the face, or a sudden inability to walk or hold your balance Allergies/Adverse Reactions: Allergies cefaclor [From Ceclor] Allergy (Verified 05/29/20 07:33) Other hives Medications to take at Discharge Vits [Prenatabs FA ] 1 tab PO DAILY 01/17/18 Acetaminophen [Tylenol] 1,000 mg PO Q8H PRN PRN tablet 05/30/20 Ibuprofen [Motrin] 600 mg PO Q6H PRN PRN tablet 05/30/20 Primary Care Physician: Care Physician,No Primary [Primary Care Provider] - Test Results: Test results from this visit will be discussed in further detail at your follow- up appointment, if applicable.
--- NOTE | 2020-05-30 11:51 | PCM.DCVAG ---
Discharge Diet: No Restrictions Discharge Activity: May Drive, May Shower May resume sexual activity in: 6 weeks Additional Instructions: If you experience any of the following, contact your healthcare provider. Bleeding that soaks a pad every hour for 2 hours Fever 100.4 or higher Unrelieved incision or abdominal pain Swelling, redness, discharge or bleeding from your incision or episiotomy site Your incision begins to separate Problems urinating (including inability to urinate or burning while urinating). Visual changes Severe headache Flu-like symptoms Pain or redness in one of both of your breasts Pain, warmth, tenderness or swelling in your legs, especially the calf area Frequent nausea and vomiting Symptoms of depression or anxiety If you experience any of the following, call 911 or go to the nearest Emergency Room. Chest pain Problems breathing Seizure activity Partial or complete paralysis of a body part, slurred speech, weakness or drooping of the face, or a sudden inability to walk or hold your balance Allergies/Adverse Reactions: Allergies cefaclor [From Ceclor] Allergy (Verified 05/29/20 07:33) Other hives Medications to take at Discharge Vits [Prenatabs FA ] 1 tab PO DAILY 01/17/18 Acetaminophen [Tylenol] 1,000 mg PO Q8H PRN PRN tablet 05/30/20 Ibuprofen [Motrin] 600 mg PO Q6H PRN PRN tablet 05/30/20 Primary Care Physician: Care Physician,No Primary [Primary Care Provider] - Test Results: Test results from this visit will be discussed in further detail at your follow-up appointment, if applicable.
[2020-05-30 12:14] VITALS: BP 132/76; PULSE 69; RESP 16; TEMP 36.8; O2SAT 96
[2020-05-30 14:00] VITALS: BP 136/83; PULSE 71; RESP 16; TEMP 37.1; O2SAT 98
[2020-05-30 16:05] VITALS: BP 136/83; PULSE 79; RESP 16; TEMP 37.1; O2SAT 98
[2020-05-30] MEDS: Ondansetron 8 MG Tablet PO (16:14)
== END 2020-05-30 17:15 | disposition home or self-care (01) | DRG 807 ==
PROVIDERS: Admitting Provider Obstetrics & Gynecology; Visit Provider Obstetrics & Gynecology
DX: O76 Abnormality in fetal heart rate and rhythm complicating labor and delivery (principal); Z37.0 Single live birth; O13.4 Gestational [pregnancy-induced] hypertension without significant proteinuria, complicating childbirth; O48.0 Post-term pregnancy; O70.1 Second degree perineal laceration during delivery; Z3A.40 40 weeks gestation of pregnancy
CPT/HCPCS: 59025; 59050; 85025; 86850; 86900; 86901; 99218; J7120; G0378